=== PATIENT | male | born 1965 | race Caucasian/White ===

== ENCOUNTER → 2017-10-14 | Outpatient (CLI) | payer OTHER ==
[~2017-10-14] MED LIST: NF-ESOM40C PO; SIMV40TA4 PO; TRIA1CAP4 PO
--- NOTE | 2017-10-14 12:18 | Diagnostic Imaging Report ---
CLINICAL INDICATION: Patient with pain and popping. Patient fell 2 months ago. EXAM: X-ray of the left shoulder, 3 views. COMPARISON: None. FINDINGS: There is no evidence of acute fracture or dislocation. There is a small calcification seen superiorly adjacent to the left glenoid rim but no donor site seen. This may be from remote degenerative or traumatic findings. The remainder of the left shoulder is unremarkable. The acromioclavicular joints are unremarkable. IMPRESSION: 1: There is no acute fracture or dislocation. 2: There is a small chronic calcification seen superiorly adjacent to the left glenoid rim region which may be related to remote traumatic process. Dictated by: Dictated on workstation # [id number]
== END ==
LOC: RAD 11:21
PROVIDERS: ATTEND Nurse Practitioner Family
DX: M25.812 Other specified joint disorders, left shoulder (principal); W19.XXXD Unspecified fall, subsequent encounter
CPT/HCPCS: 73030

== ENCOUNTER → 2017-10-22 | Outpatient (CLI) | payer OTHER ==
--- NOTE | 2017-10-22 13:54 | Diagnostic Imaging Report ---
PROCEDURE: MRI left upper extremity without contrast. TECHNIQUE: Multiplanar, multisequence non contrast-enhanced MRI of the left upper extremity was accomplished. INDICATION: Injury, decreased range of motion. FINDINGS: There are no previous MRI examinations available for comparison. The plain film examination of the left shoulder performed on 10/14/2017 failed to show any sign of an acute abnormality. The prior exam did note a minute calcific density just superior to the glenoid rim. The possibility that this was related to a prior episode or trauma was raised. On the T2 fat-saturated coronal series of this exam, there are vague areas of increased signal within the substance of the rotator cuff. These findings are more likely due to tendinosis than to a partial tear. The supraspinatus muscle itself is not retracted or bunched. There is hypertrophy of the acromioclavicular joint, but there does not appear to be any significant narrowing of the outlet for the supraspinatus muscle. The biceps tendon and the subscapularis tendon are intact. The labrum is thinned posteriorly and is most likely torn on a degenerative basis in this region. There is only a small joint effusion present. There is no abnormal signal arising from the osseous structures to suggest bone edema or a fracture. IMPRESSION: 1. There is tendinosis of the rotator cuff, but the rotator cuff appears to be intact and the supraspinous muscle is not retracted or bunched. 2. There is hypertrophy of the acromioclavicular joint, but there is no narrowing of the outlet for the supraspinatus muscle. 3. The labrum is thinned posteriorly and most likely torn on a degenerative basis. 4. There is no acute bony abnormality appreciated. Dictated by: Dictated on workstation # [id number]
== END ==
LOC: RAD 07:19
PROVIDERS: ATTEND Orthopaedic Surgery
DX: M75.92 Shoulder lesion, unspecified, left shoulder (principal); M89.312 Hypertrophy of bone, left shoulder; M75.112 Incomplete rotator cuff tear or rupture of left shoulder, not specified as traumatic
CPT/HCPCS: 73221

== ENCOUNTER 2018-12-29 08:15 | Outpatient (CLI) | payer OTHER ==
[~2018-12-29] VITALS: Ht 182.9 cm; Wt 86.6 kg
[2018-12-29] MEDS ORDERED: TRIA1CAP4 PO (08:42)
[2018-12-29] MEDS ORDERED: ATOR20TA66 PO (08:42)
[2018-12-29] MEDS ORDERED: ESOM40CA52 PO (08:42)
== END 2018-12-29 09:35 | disposition home or self-care (01) ==
LOC: PREOP 08:15
PROVIDERS: ATTEND Surgery
DX: Z01.818 Encounter for other preprocedural examination (principal)

== ENCOUNTER 2018-12-31 12:32 | Day surgery (SDC) | payer OTHER ==
[~2018-12-31] VITALS: Ht 182.9 cm; Wt 86.6 kg
[~2018-12-31 12:32] MED LIST changes: +ATOR20TA66 PO; +ESOM40CA52 PO
--- OUTSIDE RECORDS SUMMARY | 2018-12-31 12:34 | XMS REPORT | Continuity of Care Document ---
Author Organization Unknown Address Unknown Allergies Active Description Code Type Severity Reaction Onset Reported/Identified Relationship to Patient Clinical Status Yes Sulfa (Sulfonamide Antibiotics) [id number] Drug Allergy Unknown N/A 01/19/2012 Medications There is no data. Problems Date Dx Coded Attending Type Code Diagnosis Diagnosed By 10/15/2017 RODRIGUEZ DANIELLE APRN Ot M25.812 OTHER SPECIFIED JOINT DISORDERS, LEFT 10/15/2017 RODRIGUEZ DANIELLE APRN Ot W19.XXXD UNSPECIFIED FALL, SUBSEQUENT ENCOUNTER 10/22/2017 RODRIGUEZ DANIELLE APRN Ot M25.812 OTHER SPECIFIED JOINT DISORDERS, LEFT 10/22/2017 RODRIGUEZ DANIELLE APRN Ot W19.XXXD UNSPECIFIED FALL, SUBSEQUENT ENCOUNTER 10/23/2017 JERARDO BOWMAN MD Ot M75.112 INCOMPLETE ROTATR-CUFF TEAR/RUPTR OF L S 10/23/2017 JERARDO BOWMAN MD Ot M75.92 SHOULDER LESION, UNSPECIFIED, LEFT SHOUL 10/23/2017 JERARDO BOWMAN MD Ot M89.312 HYPERTROPHY OF BONE, LEFT SHOULDER 10/28/2017 RODRIGUEZ DANIELLE APRN Ot M25.812 OTHER SPECIFIED JOINT DISORDERS, LEFT SH 10/28/2017 RODRIGUEZ DANIELLE APRN Ot W19.XXXD UNSPECIFIED FALL, SUBSEQUENT ENCOUNTER 10/28/2017 JERARDO BOWMAN MD Ot M75.112 INCOMPLETE ROTATR-CUFF TEAR/RUPTR OF L S 10/28/2017 JERARDO BOWMAN MD Ot M75.92 SHOULDER LESION, UNSPECIFIED, LEFT SHOUL 10/28/2017 JERARDO BOWMAN MD Ot M89.312 HYPERTROPHY OF BONE, LEFT SHOULDER 11/25/2017 JERARDO BOWMAN MD Ot M75.112 INCOMPLETE ROTATR-CUFF TEAR/RUPTR OF L S 11/25/2017 JERARDO BOMWAN MD Ot M75.92 SHOULDER LESION, UNSPECIFIED, LEFT SHOUL 11/25/2017 JERARDO BOWMAN MD, Ot M89.312 HYPERTROPHY OF BONE, LEFT SHOULDER 12/24/2018 MARLON YAN MD Ot Z01.818 ENCOUNTER FOR OTHER PREPROCEDURAL EXAMIN 12/29/2018 MARLON YAN MD, Ot Z01.818 ENCOUNTER FOR OTHER PREPROCEDURAL EXAMIN Procedures There is no data. Results There is no data. Encounters ACCT No. Visit Date/Time Discharge Status Pt. Type Provider Facility Loc./Unit Complaint 05/24/16 12/01/2018 15:15:29 12/01/2018 23:59:59 CLS Outpatient Madison Hazel [id number] 12/29/2018 08:15:00 12/29/2018 09:35:00 DIS Outpatient MARLON YAN MD [facility] PREOP COLONOSCOPY [id number] 10/22/2017 07:19:00 10/22/2017 23:59:59 CLS Outpatient JERARDO BOWMAN MD [facility] RAD ROTATOR CUFF TEAR [id number] 10/14/2017 11:21:00 10/14/2017 23:59:59 CLS Outpatient RODRIGUEZ DANIELLE APRN [facility] RAD LEFT SHOULDER PAIN [id number] 12/31/2018 12:00:00 PEN Preadmit MARLON YAN MD [facility] ENDO SCREENING
[2018-12-31] MEDS ORDERED: NS IV 500 ML 500 ML IV PRN (12:53)
[2018-12-31] MEDS ORDERED: NS IV 500 ML 500 ML ONE (12:54)
[2018-12-31] MEDS ORDERED: fentaNYL INJECTION 100 MCG/2 ML AMP IVP ONE (13:00)
[2018-12-31] MEDS ORDERED: LIDOCAINE JELLY 2% 6 ML SYRINGE MM PRN (13:00)
[2018-12-31] MEDS ORDERED: MIDAZOLAM 2 MG/2 ML (VERSED) VIAL IVP ONE (13:00)
[2018-12-31 13:17] VITALS: BP 144/95
[2018-12-31] MEDS ORDERED: MIDAZOLAM 2 MG/2 ML (VERSED) VIAL ONE ×5 (13:31→14:17)
[2018-12-31] MEDS ORDERED: LIDOCAINE JELLY 2% 6 ML SYRINGE ONE (13:31)
[2018-12-31] MEDS ORDERED: fentaNYL INJECTION 100 MCG/2 ML AMP ONE ×2 (13:31)
--- NOTE | 2018-12-31 13:42 | Progress Note-Pre Operative ---
Pre-Operative Progress Note H&P Reviewed The H&P was reviewed, patient examined and no changes noted. Date Seen by Provider: Dec 31, 2018 Time Seen by Provider: 13:30 Date H&P Reviewed: Dec 31, 2018 Time H&P Reviewed: 13:30 Pre-Operative Diagnosis: MARLON Castillo MD Dec 31, 2018 13:42
--- NOTE | 2018-12-31 13:42 | Conscious Sedation/ASA ---
Conscious Sedation Pre-Proced Time 13:30 ASA Score 2 For ASA 3 and 4: Consider anesthesia and medical clearance. Also, for patients with a history of failed moderate sedation consider anesthesia. Airway Lungs Heart ASA score ASA 1: a normal healthy patient ASA 2: a patient with a mild systemic disease (mid diabetes, controlled hypertension, obesity ASA 3: a patient with a severe systemic disease that limits activity (angina, COPD, prior Myocardial infarction) ASA 4: a patient with an incapacitating disease that is a constant threat to life (CHF, renal failure) ASA 5: a moribund patient not expected to survive 24 hrs. (ruptured aneurysm) ASA 6: a declared brain- patient whose organs are being harvested. For emergent operations, add the letter E after the classification Mallampati Classification Grade 2 Sedation Plan Analgesia, Amnesia, Plan communicated to team members, Discussed options with patient/fam, Discussed risks with patient/fam The patient is an appropriate candidate to undergo the planned procedure, sedation, and anesthesia. The patient immediately re-assessed prior to indication. MARLON YAN MD Dec 31, 2018 13:42
--- NOTE | 2018-12-31 13:44 | Discharge Inst-Surgical ---
D/C Lap Instructions-FARRAH Follow Up 5 yrs Activity as tolerated High Fiber Diet 25g or more per day Avoid Alcohol, Caffeine, Spicy [place] and Acid foods. Drink 64 fluid oz or more of fluids per day. Symptoms to Report: Fever over 101 degree F, Nausea/Vomiting If any problems/questions: Contact your physician or go to Emergency Room MARLON YAN MD Dec 31, 2018 13:44
[2018-12-31] MEDS ORDERED: HYDROcodone/APAP 5 MG/325 MG (LORTAB) TAB PO PRN (13:45)
[2018-12-31] MEDS ORDERED: ACETAMINOPHEN 325 MG TABLET PO PRN (13:45)
[2018-12-31] MEDS ORDERED: morphine INJ 10 MG/ML 1ML (SYR OR VIAL) IVP PRN ×2 (13:45)
[2018-12-31] MEDS ORDERED: ONDANSETRON 4 MG/2 ML (SDV) Z0FRAN IVP PRN (13:45)
--- NOTE | 2018-12-31 14:47 | Progress Note-Post Operative ---
Post-Operative Progess Note Surgeon (s)/Library Clerk (s) Surgeon MARLON YAN MD Library Clerk: none Pre-Operative Diagnosis screening Post-Operative Diagnosis normal colon and rectum Procedure & Operative Findings Date of Procedure 12/31/18 Procedure Performed/Findings colonoscopy Anesthesia Type cs Estimated Blood Loss Estimated blood loss (mL): minimal Specimens/Packing Specimens Removed none MARLON YAN MD Dec 31, 2018 14:47
[2018-12-31 14:55] VITALS: BP 107/66
[2018-12-31 15:20] VITALS: BP 115/82
[2018-12-31 15:40] VITALS: BP 115/82
--- NOTE | 2018-12-31 20:10 | OPERATIVE REPORT ---
DATE OF SERVICE: 12/31/2018 ATTENDING PRIMARY CARE PHYSICIAN: Madison Hazel DO. PREOPERATIVE DIAGNOSIS: Screening colonoscopy. POSTOPERATIVE DIAGNOSIS: Mild chronic stage I external and internal hemorrhoids. PROCEDURE PERFORMED: Colonoscopy. SURGEON: Marlon Yan MD. ANESTHESIA: Conscious sedation. ESTIMATED BLOOD LOSS: Minimal. FINDINGS: Mild stage I external and internal hemorrhoids, not actively edematous nor inflamed and no bleeding. The remainder of the rectum and colon were normal. There were no polyps or any neoplasms identified. DISPOSITION: The patient tolerated the procedure well. INDICATIONS: The patient is a 53-year-old male in need of a screening colonoscopy. He states that for the most part he is doing well and does not report any major issues with diarrhea nor constipation as well as no red blood per rectum nor any dark tarry stools. He does report that his mother was diagnosed with ulcerative colitis and did have issues with this requiring what sounds to be a colon resection and colostomy or ileostomy; however, he states that this never formed into cancer. DESCRIPTION OF PROCEDURE: The patient was brought to the endoscopy suite, laid in the left lateral decubitus position. After adequate IV pain and sedating medications and conscious sedation anesthesia, a digital rectal examination was performed. Mild chronic stage I external and internal hemorrhoids were identified, which were not actively edematous or inflamed and no bleeding. Normal sphincter tone was felt and there were no palpable masses. Prostate gland was palpable and appeared normal. The endoscope was then intubated to the anus and rectum was gently insufflated. The endoscope was then advanced to the valves of [place] of the rectum with no polyps or any neoplasms identified. We then proceeded through the sigmoid colon where no diverticulosis identified. The endoscope was then advanced to the remainder of the descending, transverse and ascending colon to the cecum. These segments were normal. There were no polyps or any neoplasms identified throughout the colon or rectum. The endoscope was then slowly withdrawn while taking a second look and suctioning residual air with no additional findings. The patient tolerated the procedure well. We will recommend a high fiber diet with at least 30 grams of fiber per day as well as significant amounts of water daily to promote soft stools on a daily basis. He does not need another colonoscopy for another 10 years. Job ID: [id number] DocumentID: [id number] Dictated Date: 12/31/2018 14:35:27 Lead [employer] Developer Date: 12/31/2018 20:09:14 Dictated By: MARLON YAN MD
== END 2018-12-31 15:40 | disposition home or self-care (01) ==
LOC: ENDO 12:32
PROVIDERS: ATTEND Surgery
DX: Z12.11 Encounter for screening for malignant neoplasm of colon (principal); K64.0 First degree hemorrhoids; Z80.0 Family history of malignant neoplasm of digestive organs; K21.9 Gastro-esophageal reflux disease without esophagitis; E78.00 Pure hypercholesterolemia, unspecified; Z79.899 Other long term (current) drug therapy